=== PATIENT | female | born 1980 | race Caucasian/White ===

== ENCOUNTER 2018-11-24 13:43 | Day surgery (SDC) | payer OTHER ==
[2018-11-24] MEDS ORDERED: BUPIVACAINE 0.5% (SDV) 30 ML INJ (16:16)
[2018-11-24] MEDS ORDERED: DIPHENHYDRAMINE 50 MG INJ IV (16:30)
[2018-11-24] MEDS ORDERED: LABETALOL HCL 20MG INJ IV (16:30)
[2018-11-24] MEDS ORDERED: OXYCODONE/ACETAMINOPHEN (5/325) TAB PO ×2 (16:30)
[2018-11-24] MEDS ORDERED: FENTAnyl 50 MCG/ML VIAL IV ×3 (16:30)
[2018-11-24] MEDS ORDERED: hydrALAzine 20 MG INJ IV (16:30)
[2018-11-24] MEDS ORDERED: TRIMETHOBENZAMIDE 100 MG/ML VIAL IM (16:30)
[2018-11-24] MEDS ORDERED: ALBUTEROL 0.083% (NEB) 2.5 MG/3 ML AMP HHN (16:30)
[2018-11-24] MEDS ORDERED: IPRATROPIUM (NEB) 0.5 MG/2.5 ML AMP HHN (16:30)
[2018-11-24] MEDS ORDERED: HYDROmorphONE 1 MG/5 ML IV SYRINGE IV ×3 (16:30)
[2018-11-24] MEDS ORDERED: MIDAZOLAM 1 MG/ML 2 ML INJ IV (16:30)
[2018-11-24] MEDS ORDERED: ONDANSETRON 4 MG INJ IV (16:30)
[2018-11-24] MEDS ORDERED: EPHEDrine 25 MG/5 ML SYG IV (16:30)
[2018-11-24] MEDS ORDERED: DEXAMETHASONE 4 MG/ML 5 ML INJ (16:37)
[2018-11-24] MEDS ORDERED: PROPOFOL 20 ML (16:37)
[2018-11-24] MEDS ORDERED: ROCURONIUM 50 MG INJ (16:37)
[2018-11-24] MEDS ORDERED: MIDAZOLAM 1 MG/ML 2 ML INJ (16:37)
[2018-11-24] MEDS ORDERED: NEOSTIGMINE 3 MG/3 ML SYRINGE (16:37)
[2018-11-24] MEDS ORDERED: CEFAZOLIN 1 GM INJ (16:37)
[2018-11-24] MEDS ORDERED: GLYCOPYRROLATE 0.4 MG INJ (16:37)
[2018-11-24] MEDS ORDERED: ONDANSETRON 4 MG INJ (16:37)
[2018-11-24] MEDS ORDERED: FENTAnyl 50 MCG/ML VIAL (16:37)
[2018-11-24] MEDS ORDERED: ROPIVACAINE 0.5 % 30 ML VIAL (16:39)
[2018-11-24] MEDS ORDERED: VANCOMYCIN 1 GM (PMX) 250 ML (17:45)
[2018-11-24] MEDS: MEPERIDINE 25 MG INJ IV (18:17)
[2018-11-24] MEDS: VANCOMYCIN 1 GM 250 ML IVPB (18:36)
== END 2018-11-24 20:48 | disposition home or self-care (01) ==
LOC: SDS 13:43
DX: S52.202K Unspecified fracture of shaft of left ulna, subsequent encounter for closed fracture with nonunion (principal); X58.XXXD Exposure to other specified factors, subsequent encounter; M86.132 Other acute osteomyelitis, left radius and ulna; T84.59XA Infection and inflammatory reaction due to other internal joint prosthesis, initial encounter; Y79.3 Surgical instruments, materials and orthopedic devices (including sutures) associated with adverse incidents; Y83.8 Other surgical procedures as the cause of abnormal reaction of the patient, or of later complication, without mention of misadventure at the time of the procedure
CPT/HCPCS: 25400; 73090; 84703; 87070; 87075; 87102; 88300